=== PATIENT | female | born 1940 | race African-American/Black ===

== ENCOUNTER 2020-07-05 15:43 | Inpatient (IN) | payer MEDICARE ==
[~2020-07-05] VITALS: Ht 152.4 cm; Wt 58.1 kg
--- NOTE | 2020-07-05 16:03 | NUR ---
PT IS IN ROOM #2A. DR DELAROSA EVALUATED THE PT.
--- NOTE | 2020-07-05 17:12 | NUR ---
REPORT WAS GIVEN TO RN MHU. PT WAS TRANSFERED TO ROOM #137A.
[2020-07-05 18:00] VITALS: BP 150/70
[2020-07-05] MEDS ORDERED: CLONAZEPAM 0.5 MG TABLET PO PRN (18:15)
[2020-07-05] MEDS ORDERED: MAGNESIUM HYDROXIDE 30 ML LIQUID UDC PO PRN (18:15)
[2020-07-05] MEDS ORDERED: ACETAMINOPHEN 325 MG TABLET PO PRN (18:15)
[2020-07-05] MEDS ORDERED: TEMAZEPAM 7.5 MG CAPSULE PO PRN (18:15)
[2020-07-05] MEDS ORDERED: MAG HYDROX/AL HYDROX/SIMETH 30 ML LIQUID UDC PO PRN (18:15)
[2020-07-05 20:58] VITALS: BP 126/63
[2020-07-06 07:46] VITALS: BP 117/53
--- NOTE | 2020-07-06 08:46 | NUR ---
Firearms Report: Group Home Paraprofessional completed and submitted a [employer] firearms report for 5150 grave disability certification. A copy of report has been placed in patient chart.
--- NOTE | 2020-07-06 11:29 | NUR ---
[facility] Initial Discharge Plan: Patient currently resides at home [address] [place] [id number] with her daughter Shahnaz Tijerina ([phone]). DUANE spoke with Shahnaz who stated that she would like patient to return home. DUANE will continue to work with patient, family, and MD to ensure a safe and proper discharge plan.
--- NOTE | 2020-07-06 11:30 | NUR ---
DUANE Family Contact: DUANE spoke with patient's daughter Shahnaz Tijerina ([phone]) and discussed treatment and discharge plan. Shahnaz will arrange transportation for the patient's upon discharge back home.
--- NOTE | 2020-07-06 14:58 | NUR ---
This inspector automatic typewriter spoke with patient's daughter, Liz Hardin ([phone]), who stated that patient does not take any psychiatric or medical medications at home and that this is her first hospitalization. Medication reconciliation completed.
[2020-07-06 17:12] VITALS: BP 143/68
[2020-07-06] MEDS: QUETIAPINE FUMARATE 25 MG TABLET PO SCH (18:18)
--- NOTE | 2020-07-06 18:18 | NUR ---
patient is refusing the prescribed medication Seroquel 12.5 mg PO. patient states "I'm not a crazy. i'm not a psych. i don't want it." patient provided with education about importance of taking medications as prescribed and indication for Seroquel, but she continues to refuse.
[2020-07-06 20:26] VITALS: BP 156/74
[2020-07-07 07:30] VITALS: BP 103/42
[2020-07-07] MEDS: QUETIAPINE FUMARATE 25 MG TABLET PO SCH ×2 (08:16→16:45)
--- NOTE | 2020-07-07 13:30 | NUR ---
Gps/Uniform Force Captain- Stayed in the activity room during the day, refusing to take routine Psych. med. claimed she does not need them. Deneis any discomfort, interact when engaged. Monitor safety
--- NOTE | 2020-07-07 14:50 | NUR ---
Individual Therapy: steelworker met with patient for brief counseling to help address patient's presenting problem disorganized thought content. Patient appeared withdrawn and isolative. Patient appeared tearful while this SW was conducting the therapy. Patient is fixated on her "car and daughter". Patient is unable to understand that she has a mental illness. Patient states "nothing is wrong with me, I am not crazy.. Why would I need to be here or take any medications?". SW provided patient education, emotional support, and actively listened to her concerns.
[2020-07-07] MEDS: ASPIRIN 81 MG TAB.CHEW PO SCH (14:51)
[2020-07-07 16:00] VITALS: BP 104/45
[2020-07-07 20:05] VITALS: BP 136/71
[2020-07-07] MEDS: ATORVASTATIN 10 MG TABLET PO SCH (20:21)
[2020-07-08 07:30] VITALS: BP 148/54
[2020-07-08] MEDS: ASPIRIN 81 MG TAB.CHEW PO SCH (08:37)
[2020-07-08] MEDS: QUETIAPINE FUMARATE 25 MG TABLET PO SCH ×2 (08:37→16:56)
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
[2020-07-08 16:21] VITALS: BP 126/70
[2020-07-08] MEDS: ATORVASTATIN 10 MG TABLET PO SCH (20:10)
[2020-07-08 20:35] VITALS: BP 114/51
--- NOTE | 2020-07-09 05:21 | NUR ---
Patient slept 8 hours.
[2020-07-09 07:30] VITALS: BP 114/53
[2020-07-09] MEDS: QUETIAPINE FUMARATE 25 MG TABLET PO SCH ×2 (08:17→16:37)
[2020-07-09] MEDS: ASPIRIN 81 MG TAB.CHEW PO SCH (08:17)
--- NOTE | 2020-07-09 12:17 | NUR ---
Gps/Type Mapper- Had been cooperative, pleasant , stayed in her room during her breakfast, was compliant with am meds. with very min. prompting. Interacting with her roommate
[2020-07-09 15:04] VITALS: BP 109/62
[2020-07-09 20:00] VITALS: BP 123/76
[2020-07-09] MEDS: ATORVASTATIN 10 MG TABLET PO SCH (20:34)
--- NOTE | 2020-07-10 05:59 | NUR ---
Patient is confused but calm. Medication compliant .Denies SI and HI. Total hours of sleep was 8.00. Continuing to monitor for safety.
[2020-07-10 07:30] VITALS: BP 122/48
[2020-07-10] MEDS: QUETIAPINE FUMARATE 25 MG TABLET PO SCH ×2 (08:06→16:46)
[2020-07-10] MEDS: ASPIRIN 81 MG TAB.CHEW PO SCH (08:06)
[2020-07-10 16:02] VITALS: BP 118/63
[2020-07-10 19:57] VITALS: BP 129/61
[2020-07-10] MEDS: ATORVASTATIN 10 MG TABLET PO SCH (20:22)
[2020-07-11 07:30] VITALS: BP 119/54
[2020-07-11] MEDS: ASPIRIN 81 MG TAB.CHEW PO SCH (08:17)
[2020-07-11] MEDS: QUETIAPINE FUMARATE 25 MG TABLET PO SCH ×2 (08:17→16:46)
--- NOTE | 2020-07-11 10:50 | NUR ---
Individual Therapy: nutrition services worker met with patient for brief counseling to help address patient's presenting problem disorganized thought content. Patient appeared withdrawn, however, patient was cooperative and pleasant. Patient was fixated on discharge and wants to go back home. She is unsure why she is at the hospital. SW actively listened and help pt recognize her condition and treatment.
[2020-07-11 15:09] VITALS: BP 142/66
--- NOTE | 2020-07-11 15:29 | NUR ---
[facility] PC Hearing: Patient had 5250 probable cause hearing today and it was upheld for grave disability.
[2020-07-11] MEDS: ATORVASTATIN 10 MG TABLET PO SCH (20:04)
[2020-07-11 20:17] VITALS: BP 130/53
[2020-07-12 07:30] VITALS: BP 118/50
[2020-07-12] MEDS: QUETIAPINE FUMARATE 25 MG TABLET PO SCH ×2 (08:32→17:42)
[2020-07-12] MEDS: ASPIRIN 81 MG TAB.CHEW PO SCH (08:32)
[2020-07-12 16:00] VITALS: BP 121/59
[2020-07-12] MEDS ORDERED: LORAZEPAM 1 MG TABLET PO PRN (17:15)
[2020-07-12] MEDS ORDERED: MAG HYDROX/AL HYDROX/SIMETH 30 ML LIQUID UDC PO PRN (17:15)
[2020-07-12] MEDS ORDERED: TEMAZEPAM 7.5 MG CAPSULE PO PRN (17:15)
[2020-07-12] MEDS ORDERED: ACETAMINOPHEN 325 MG TABLET PO PRN (17:15)
[2020-07-12] MEDS ORDERED: MAGNESIUM HYDROXIDE 30 ML LIQUID UDC PO PRN (17:15)
[2020-07-12] MEDS: ATORVASTATIN 10 MG TABLET PO SCH (20:02)
[2020-07-12 20:23] VITALS: BP 161/67
[2020-07-12 20:36] VITALS: BP 138/68
--- NOTE | 2020-07-13 05:57 | NUR ---
GPS: Pt.slept 6.30. No escalation of behavior noted. Safe environment provided. Will continue to monitor.
[2020-07-13 06:51] LABS: BASOPHILS % (AUTO) 0.7 % (0.0-2.0); EOSINOPHILS # (AUTO) 0.2 K/uL (0.0-0.7); EOSINOPHILS % (AUTO) 3.1 % (0.0-7.0); HEMATOCRIT 38.3 % (31.2-41.9); HEMOGLOBIN 12.7 g/dL (10.9-14.3); LYMPHOCYTES # (AUTO) 2.4 K/uL (20.0-40.0); LYMPHOCYTES % (AUTO) 36.4 % (20.5-51.5); MEAN CORPUSCULAR HEMOGLOBIN 28.7 uug (24.7-32.8); MEAN CORPUSCULAR HGB CONC 33 g/dL (32.3-35.6); MEAN CORPUSCULAR VOLUME 86.4 fL (75.5-95.3); MONOCYTES # (AUTO) 0.6 K/uL (2.0-10.0); MONOCYTES % (AUTO) 8.9 % (0.0-11.0); NEUTROPHILS # (AUTO) 3.4 K/uL (1.8-8.9); NEUTROPHILS % (AUTO) 50.9 % (38.5-71.5); PLATELET COUNT (AUTO) 265 K/uL (179-408); RED BLOOD CELL COUNT(AUTO) 4.43 MIL/uL (3.63-4.92); WHITE BLOOD COUNT (AUTO) 6.7 K/uL (3.8-11.8)
[2020-07-13 07:04] LABS: BILIRUBIN,TOTAL 0.4 mg/dL (0.2-1.0); MAGNESIUM 2.3 mg/dL (1.8-2.4); PHOSPHOROUS 3.4 mg/dL (2.5-4.9); POTASSIUM 4.2 mmol/L (3.5-5.1); TOTAL PROTEIN, SERUM 6.6 g/dL (6.4-8.2)
[2020-07-13 07:12] LABS: THYROID STIMULATING HORMONE 2.15 mIU/mL (0.358-3.740)
[2020-07-13 07:30] VITALS: BP 131/57
[2020-07-13] MEDS: ASPIRIN 81 MG TAB.CHEW PO SCH (08:50)
[2020-07-13] MEDS: QUETIAPINE FUMARATE 25 MG TABLET PO SCH ×3 (08:50→22:02)
[2020-07-13 16:07] VITALS: BP 130/59
[2020-07-13] MEDS: ATORVASTATIN 10 MG TABLET PO SCH (20:52)
[2020-07-13 21:00] VITALS: BP 111/60
--- NOTE | 2020-07-13 22:30 | NUR ---
Received patient in the activity room, Patient was watching television with another patient. Both patient got along well. Patient with no complaints of pain. No behavioral problems. Patient received all due medications ordered by MD. Patient was compliant and cooperative with care. Will continue to monitor patient.
[2020-07-14 07:30] VITALS: BP 104/43
[2020-07-14] MEDS: QUETIAPINE FUMARATE 25 MG TABLET PO SCH ×3 (09:03→16:19)
[2020-07-14] MEDS: ASPIRIN 81 MG TAB.CHEW PO SCH (09:03)
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
--- NOTE | 2020-07-14 12:56 | NUR ---
APS Report: Thank you for submitting a Protective Services Report. Your report (Intake ID [id number]) was successfully submitted on 07/14/2020 at 12:56 PM. Addendum: 07/14/20 at 1258 by RUFINA DUGGAN A copy of the report has been placed in the patient's chart.
[2020-07-14 16:00] VITALS: BP 101/47
[2020-07-14 20:03] VITALS: BP 128/60
[2020-07-14] MEDS: ATORVASTATIN 10 MG TABLET PO SCH (20:53)
[2020-07-15 07:30] VITALS: BP 133/49
--- NOTE | 2020-07-15 08:07 | NUR ---
SW Discharge Note: Patient is choosing to be discharged with her granddaughter, Julissa ([phone]) [place] [address] [place] [address]. Julissa will be picking up the patient today at 11AM. Patient is aware and agreeable to patients discharge. Patient denies suicidal and homicidal ideation. Patient is alert and oriented x4. Patient presents with euthymic mood and congruent affect. Patient is [facility] to [facility] [place], [place] [id number] ([phone]) for primary physician follow up. Patient is [facility] to [facility] [address] [place] [id number]([phone]) for psychiatrist follow up. Patient is referred to [facility] [address] [place] [address] ([phone]) scheduled for an intake evaluation for a psychiatrist on July 18, 2020 at 9AM via telephone. Patient presented with euthymic mood and congruent affect.
[2020-07-15] MEDS: ASPIRIN 81 MG TAB.CHEW PO SCH (08:19)
[2020-07-15] MEDS: QUETIAPINE FUMARATE 25 MG TABLET PO SCH (08:19)
--- NOTE | 2020-07-15 10:22 | NUR ---
CALLED IN PRESCRIPTION TO [facility] [place] , SPOKE WITH PHARMACIST WITH JUNIOR PHARMACIST, FAMILY AWARE
--- NOTE | 2020-07-15 11:45 | NUR ---
PT LEFT ON WHEELCHAIR ACCOMPANIED BY NURSE TO PRIVATE VEHICLE WITH [facility]. PT'S DAUGHTER WAS ALSO HERE, BUT PT WAS NOT ALLOWED TO BE DISCHARGED TO DAUGHTER. PT DENIES PAIN OR DISCOMFORT. DENIES SI AND HI. ABLE TO VERBALIZE ALL NEEDS. LEFT WITH ALL NOTED BELONGINGS AND PAPERWORK .
== END 2020-07-15 11:45 | disposition home or self-care (01) | DRG 885 ==
LOC: ER 15:45 → GPS 16:56
PROVIDERS: ADMIT Psychiatry & Neurology Psychiatry; ATTEND Nurse Practitioner Acute Care
DX: F29 Unspecified psychosis not due to a substance or known physiological condition (principal); I10 Essential (primary) hypertension; E78.5 Hyperlipidemia, unspecified; R79.89 Other specified abnormal findings of blood chemistry; F03.90 Unspecified dementia, unspecified severity, without behavioral disturbance, psychotic disturbance, mood disturbance, and anxiety; Z91.14 Patient's other noncompliance with medication regimen
CPT/HCPCS: 36415; 71045; 83735; 84100; 84443; 85025; 93005; A4663